=== PATIENT | female | born 1955 | race Caucasian/White ===

== ENCOUNTER → 2023-10-19 12:40 | Outpatient (REF) | payer OTHER, SELFPAY | LOC: PAVMRI 12:40 | PROVIDERS: ATTENDING PHYSICIAN Orthopaedic Surgery; FAMILY PHYSICIAN Physician Assistant Medical | DX: M75.121 Complete rotator cuff tear or rupture of right shoulder, not specified as traumatic (principal); M19.011 Primary osteoarthritis, right shoulder | CPT/HCPCS: 73221 ==

== ENCOUNTER → 2023-11-07 13:30 | Outpatient (REF) | payer OTHER, SELFPAY | LOC: RAD 13:30 | PROVIDERS: ATTENDING PHYSICIAN Podiatrist | DX: M20.42 Other hammer toe(s) (acquired), left foot (principal) | CPT/HCPCS: 73630 ==

== ENCOUNTER → 2024-01-23 13:08 | Outpatient (REF) | payer OTHER, SELFPAY | LOC: PAVMRI 13:08 | PROVIDERS: ATTENDING PHYSICIAN Podiatrist; FAMILY PHYSICIAN Physician Assistant Medical | DX: M79.672 Pain in left foot (principal) | CPT/HCPCS: 73718 ==

== ENCOUNTER 2024-02-11 09:58 | Outpatient (RCR) | payer OTHER, SELFPAY | END 2024-02-11 23:59 | disposition home or self-care (01) | LOC: RPT 09:58 | PROVIDERS: FAMILY PHYSICIAN Pediatrics | DX: M75.41 Impingement syndrome of right shoulder (principal); Z73.6 Limitation of activities due to disability; M25.511 Pain in right shoulder | CPT/HCPCS: 97110; 97140; 97162 ==

== ENCOUNTER → 2024-02-15 12:32 | Outpatient (REF) | payer OTHER, SELFPAY | LOC: HWCARD 12:32 | PROVIDERS: ATTENDING PHYSICIAN Student in an Organized Health Care Education/Training Program; FAMILY PHYSICIAN Physician Assistant Medical | DX: Z01.818 Encounter for other preprocedural examination (principal) | CPT/HCPCS: 93005 ==

== ENCOUNTER 2024-04-10 22:54 | Inpatient (IN) | payer OTHER, MEDICARE, SELFPAY ==
[2024-04-10 17:52] VITALS: BP 183/103
[2024-04-10 19:00] VITALS: BP 140/97
[2024-04-10 19:07] VITALS: BP 150/90
[2024-04-10 19:29] VITALS: BMI 23.2
[2024-04-10 19:31] LABS: % Basophils 0.7 % (0-2); % Eosinophils 1.6 % (0-6); % Immature Granulocytes 0.3 % (0-0.5); % Lymphocytes 28.5 % (20.5-51.1); % Monocytes 12.2 % (1.7-9.3); % Neutrophils 56.7 % (42.2-75.2); Absolute Basophils 0.1 10^3/uL (0-0.2); Absolute Eosinophils 0.1 10^3/uL (0-0.7); Absolute Monocytes 0.9 10^3/uL (0.1-0.6); Hematocrit 36.4 % (37.0-47.0); Mean Corp Hgb Conc. 35.7 g/dL (33.0-37.0); Mean Corpuscular Hgb 33.7 pg (27.0-31.0); Mean Corpuscular Volume 94.3 fL (81.0-99.0); Mean Platelet Volume 8.7 fL (7.4-10.4); Nucleated Red Blood Cells % 0 %; Platelet Count 221 10^3/uL (130-400); Red Blood Cell Count 3.86 10^6/uL (4.20-5.40); Red Cell Dist. Width 12.2 % (11.5-14.5)
[2024-04-10 19:47] LABS: ALT (SGPT) 32 U/L (0-35); AST (SGOT) 31 U/L (14-36); Albumin 4.3 g/dl (3.5-5.0); Alkaline Phosphatase 79 U/L (38-126); Blood Urea Nitrogen 26 mg/dl (7-17); Calcium 10.1 mg/dl (8.4-10.2); Carbon Dioxide 26 mmol/L (22-30); Chloride 105 mmol/L (98-107); Estimated Creatinine Clearance 66 ml/min; Glucose 94 mg/dl (70-99); Potassium 4.2 mmol/L (3.5-5.1); Sodium 140 mmol/L (135-145); Total Bilirubin 0.8 mg/dl (0.2-1.3); Total Protein 6.5 g/dl (6.3-8.2); eGFR > 60.00
--- NOTE | 2024-04-10 19:59 | ED.GENMED ---
History of Present Illness
General
Chief Complaint: DVT/Possible Blood Clot
Time Seen by Provider: 04/10/24 18:46
History of Present Illness
History of Present Illness:
68-year-old female presents the emergency department for evaluation of abrupt onset of left middle finger discoloration and numbness, began mildly last night before worsening today. She denies any trauma to the finger and denies any significant
pain but states that it feels 'full'. She has approximately 1 month status post left bunionectomy and has been complaining of intermittent numbness to the left leg but denies swelling or calf cramping. She has been on full dose aspirin since the
surgery prophylactically and was due to stop in 2 days. She is not a smoker. No chest pain or shortness of breath
Past History
Past History
ED Past Medical History: None
Social History
Tobacco: Non-smoker
Review of Systems
Review of Systems
Allergies reviewed?: Yes
All Other Systems: ROS reviewed and negative except as documented in HPI and ROS
Phy Exam
Physical Exam
Physical Exam:
GEN: Well appearing, NAD, WDWN
HEENT: Oral mucosa moist, no scleral icterus
Cardiac: Regular rate and rhythm no murmur
Lung: No respiratory distress, no tachypnea
MSK: Circumferential violaceous discoloration to the left middle finger with mild digital edema, sensation is diminished however able to feel pinprick, range of motion of the digit is normal. Patient has strong radial pulse on the left side and
ulnar pulse is strong by Doppler
Skin: Good color, no pallor or jaundice, no rashes
Neuro: AO x3, moves all extremities freely
Psych: Calm, cooperative
Course
Orders/Labs/Results
Orders:
Orders
04/10/24 19:18
Complete Blood Count/With Diff Urgent
Comprehensive Metabolic Panel Urgent
PTT Urgent
Comment: ADD ON
Prothrombin Time Urgent
04/10/24 19:42
Electrocardiogram (*1) Urgent
Reason for Study: TIA/Stroke
EKG- Treatment ONCE
04/10/24 19:52
CT Angio Upper Ext W/Wo Iv Contrast [CT Upper Ext Angio W/wo Iv Con] Urgent
Comment:
Reason For Exam: L digital ischemia
04/10/24 21:[address] Non Medication Order As Directed
Physician Order: PTT 6 hours after initial start of Heparin infusion
04/10/24 22:00
Heparin 05757 Units/250 ml 25,000 units in 250 ml IV PER PROTOCOL
Weight to be used for heparin protocol in kilograms (kg):: 67
Protocol:: Vascular Surgery
PTT Goal Range to be used:: PTT 73 to 111 seconds
Order type:: Initial
INITIAL Infusion Dose (UNITS/KG/hr) & then follow protocol:: 18 units/kg/hr
Infusion Dose in UNITS/hr & then follow protocol (UNITS/hr):: 1,200
INFUSION RATE in mL/hr & then follow protocol (mL/hr):: 12
PTT less than or equal to 64 seconds:: Notify Ordering Provider. obtain orders for rate increase &
possible bolus
PTT 64.1 to 72.9 seconds:: Increase rate by 100 units/hr (+ 1 mL/hr)
PTT 73 to 111 seconds:: Target Range. No change in rate.
PTT 111.1 to 130.9 seconds:: Decrease rate by 100 units/hr (- 1 mL/hr)
PTT 131 to 199.9 seconds:: HOLD for 1 hour. Then decrease rate by 200 units/hr (- 2 mL/hr)
PTT greater than or equal to 200 seconds:: STOP INFUSION. Notify Ordering provider to obtain further orders.
Lab follow-up:: Each change, PTT q6h until 2 consecutive are therapeutic. Then PTT
daily.
04/10/24 22:12
Add On- LAB Urgent
Tests Added?: PTT
04/10/24 22:33
Heparin 5,400 units IV NOW STA
04/10/24 22:34
Heparin 2,700 units IV PRN PRN
Heparin 5,400 units IV PRN PRN
04/10/24 22:44
Admit/Transfer Patient As Directed
Co-Sign Provider:
Level of Care: Inpatient admission
Assign to:: Medical/Surgical
Physician / Group: edwina
Diagnosis: ischemic left third finger
Reason for Hospitalization: ischemic left third finger
Expected length of stay greater than two midnights?: Yes
ELOS- Estimated Length of Stay in days: 2
I certify the patient meets the requirements for IP care: Yes
Code Status As Directed
Resuscitation Status: Full Code
PRN Pain Medication Management As Directed
May give lesser potent ordered pain med per pt: Yes
preference::
Protocol:: Medication orders for pain may be administered in a
manner that supports deferring to patient preference
when the pt is:
- Requesting an ordered lesser potent pain medication.
Least to most potent pain medications are defined
as: acetaminophen < NSAID < tramadol < opioids
(morphine, oxycodone, hydromorphone).
- Requesting a lesser dose of the same medication IF
ORDERED.
- Requesting a less intrusive route of administration
if both routes are prescribed by the provider (PO <
IV).
Abnormal Lab Results
04/10/24
19:18
RBC 3.86 L 10^6/uL
(4.20-5.40)
Hct 36.4 L %
(37.0-47.0)
MCH 33.7 H pg
(27.0-31.0)
Absolute Monos (auto) 0.9 H 10^3/uL
(0.1-0.6)
Monocytes % 12.2 H %
(1.7-9.3)
BUN 26 H mg/dl
(7-17)
04/10/24 19:18
04/10/24 19:18
Vital Signs
Initial and Last Documented VS:
Initial Vital Signs
Temp Pulse Resp BP Pulse Ox
98.4 F 82 18 183/103 95
04/10/24 17:52 04/10/24 17:52 04/10/24 17:52 04/10/24 17:52 04/10/24 17:52
Last Documented Vital Signs
Temp Pulse Resp BP Pulse Ox
98.4 F 67 20 142/89 96
04/10/24 17:52 04/10/24 21:45 04/10/24 21:45 04/10/24 21:17 04/10/24 21:45
MDM/Problems Addressed
MDM/Problems Addressed:
Case was discussed with vascular surgery, recommend cardioembolic and vascular anatomic workup with CT angiogram. No evidence of arrhythmia on EKG, CT angiogram grossly unremarkable. Will admit on heparin as this occurred while the patient was on
full dose aspirin although aspirin was felt to be sufficient by vascular surgery. Will need further cardioembolic workup with echocardiogram
*Critical Care Note
Total Time (30-74mins, 75-104mins- exclusive of procedures): Not Applicable
ED Attending Note
-
Portions of this chart may have been created with voice recognition software.� Occasional wrong word or��sound alike� substitutions may have occurred due to the inherent limitations of voice recognition software.
Discharge Plan
Departure
Patient Disposition: Admit
Date of Disposition: 04/10/24
Time of Disposition: 22:04
Admit to: Telemetry
Presentation/result/management discussed w/ accepting MD/DO: Hospitalist
Discharge Problem:
Ischemia of digits of hand
Interventions
Interventions:
*Risk Screen - Suicide Last Done: 04/10/24 17:52
*General Assessment Last Done: 04/10/24 17:52
*Neglect/Abuse Screening Last Done: 04/10/24 17:52
ED- Fall Risk Assessment Last Done: 04/10/24 19:38
*ED COVID-19 Vaccine History Last Done: 04/10/24 17:52
ED- Cardiac Assessment Last Done: 04/10/24 19:29
ED- Pulmonary Assessment Last Done: 04/10/24 19:29
ED-Peripheral Vascular Assessment Last Done: 04/10/24 19:29
ED-Skin Assessment Last Done: 04/10/24 19:29
[2024-04-10 20:00] VITALS: BP 172/85
[2024-04-10 20:05] LABS: INR 1.06; PT 14.3 Sec (11.4-14.6)
[2024-04-10 21:17] VITALS: BP 142/89
--- NOTE | 2024-04-10 22:47 | HPS.HSE ---
Family Physician
-
Family Physician: Loly Rodriguez
Chief Complaint
-
left third finger discoloration
History of Present Illness
68-year-old female past medical history of hypertension, throat schwannoma status post resection, vocal cord reconstruction, left foot bunion surgery, presenting with abrupt onset of left middle finger discoloration and numbness and tingling which
started last night and got worse today. Patient denies any trauma to the finger. She states the left finger felt cool earlier today.
Patient underwent bunionectomy of left foot a month ago and during the surgery received a left lower extremity nerve block and has been complaining of persistent burning pain at the site of the nerve block inferior and posterior to the left knee.
She is unable to sleep due to the pain.
Patient denies smoking. She drinks alcohol occasionally.
Medical History
Past Medical History
Past Medical History: Reports Other (hypertension, throat schwannoma status post resection, vocal cord reconstruction, left foot bunion surgery,)
Past Surgical History: Reports and Other (schwannoma throat surgery, left foot bunion surgery )
Social History
Tobacco: Non-smoker
Alcohol: Occasional
Drug: None
Family History
Family History: Not pertinent
Allergies / Home Medications
Allergies reflects when Allergies were last updated in [facility].
Home Medications with original date entered in [facility]
Allergy/Medication List:
Allergies
Allergy/AdvReac Type Severity Reaction Status Date / Time
tramadol Allergy Unknown Verified 04/10/24 17:53
Home Medications
acetaminophen 500 mg tablet 500 - 1,000 mg PO Q6HPRN PRN mild pain 04/10/24
aspirin 325 mg tablet 325 mg PO DAILY 04/10/24
gabapentin 300 mg capsule 300 mg PO HS 04/10/24
ibuprofen 600 mg tablet 600 mg PO Q6HPRN PRN mild pain 04/10/24
lisinopril 5 mg tablet 5 mg PO DAILY 04/10/24
naproxen sodium 220 mg tablet (Aleve) 440 mg PO BIDPRN PRN mild pain 04/10/24
Review of Systems
-
History Source: Patient
A 12 point ROS was completed and negative except as noted: Yes
Constitutional: Reports No Symptoms
EENT: Reports No Symptoms
Respiratory: Reports No Symptoms
Cardiac: Reports No Symptoms
Abdomen/GI: Reports No Symptoms
: Reports No Symptoms
Musculoskeletal: Reports No Symptoms
Skin: Reports No Symptoms
Neurological: Reports No Symptoms
Endocrine: Reports No Symptoms
Hematologic/Lymphatic: Reports No Symptoms
Psych: Reports No Symptoms
Physical Exam
Vital Signs
Vital Signs
Temp Pulse Resp BP Pulse Ox
98.4 F 67 20 142/89 96
04/10/24 17:52 04/10/24 21:45 04/10/24 21:45 04/10/24 21:17 04/10/24 21:45
Physical Exam
General: Well Developed, Well Nourished and No Apparent Distress
HEENT: NormoCephalic, Moist mucous membranes and Atraumatic
Respiratory: Clear
Cardiac: S1/S2 and Regular Rhythm; No Murmur or Rub
GI: Soft, Non Tender, Non Distended and Normal Bowel Sounds; No Organomegaly
Rectal: Deferred by Provider
Musculoskeletal: No Clubbing, No Cyanosis and No Edema
Skin: Other (left third finger discoloration ); No Rash
Neuro: Nonfocal/grossly intact
Laboratory Results
-
04/10/24 19:18
04/10/24 19:18
Laboratory Results
PT 14.3 Sec (11.4-14.6) 04/10/24 19:18
INR 1.06 04/10/24 19:18
APTT Cancelled 04/10/24 21:57
Total Bilirubin 0.8 mg/dl (0.2-1.3) 04/10/24 19:18
AST 31 U/L (14-36) 04/10/24 19:18
ALT 32 U/L (0-35) 04/10/24 19:18
Alkaline Phosphatase 79 U/L (38-126) 04/10/24 19:18
Data Reviewed
-
Lab Data: Labs Reviewed by me
Old Records: Reviewed
Impression/Plan
-
IMPRESSION:
PLAN:
# Ischemic left third finger, possibly cardioembolic
-CT angiogram of left upper extremity unremarkable apart from mild calcific atherosclerosis in the proximal left subclavian artery,
-Continue aspirin
-Heparin drip started
-Vascular surgery consulted
-Check echocardiogram
# Left foot bunion status post surgery 1 month ago
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
-Increase gabapentin from 300 mg at night to 600 mg
-Continue aspirin, Tylenol, naproxen
Essential hypertension
-Continue lisinopril
History of throat schwannoma status post resection
History of vocal cord reconstruction
Full code
DVT prophylaxis�heparin drip
Regular diet
[2024-04-10] MEDS: HEPARIN 5400 UNITS IV (22:57)
[2024-04-10] MEDS: HEPARIN 25000 UNITS/250 ML IV (23:00)
[2024-04-11] VITALS (7 sets, daily range): BP systolic 85–159; BP diastolic 72–101; PULSE 71–109; O2SAT 96; BMI 22.1
[2024-04-11] MEDS: NEURONTIN 600 MG PO ×2 (01:09→21:04)
[2024-04-11] MEDS: TYLENOL 1000 MG PO (01:11)
[2024-04-11] MEDS: BENADRYL 25 MG PO ×2 (01:31→22:54)
[2024-04-11 06:08] LABS: % Basophils 1.1 % (0-2); % Eosinophils 2.3 % (0-6); % Immature Granulocytes 0.2 % (0-0.5); % Lymphocytes 35.9 % (20.5-51.1); % Monocytes 14.6 % (1.7-9.3); % Neutrophils 45.9 % (42.2-75.2); Absolute Basophils 0.1 10^3/uL (0-0.2); Absolute Eosinophils 0.1 10^3/uL (0-0.7); Absolute Monocytes 0.8 10^3/uL (0.1-0.6); Absolute Neutrophils 2.5 10^3/uL (1.4-6.5); Hemoglobin 12.7 g/dL (12.0-16.0); Mean Corp Hgb Conc. 35.3 g/dL (33.0-37.0); Mean Corpuscular Hgb 33.2 pg (27.0-31.0); Mean Platelet Volume 8.8 fL (7.4-10.4); Nucleated Red Blood Cells % 0 %; Platelet Count 217 10^3/uL (130-400); Red Blood Cell Count 3.83 10^6/uL (4.20-5.40); Red Cell Dist. Width 12.4 % (11.5-14.5); White Blood Cell Count 5.5 10^3/uL (4.8-10.8)
--- NOTE | 2024-04-11 06:28 | PTCARENOTE ---
pt is aaox3, reports left foot pain -. pt had surgery 1 month ago. dressing was done by out pt by surgeon. Assessed wound- 2 pins noted, gauze and efrain wrap maintained. edema noted. pt has weak pulse. pt has left 3rd finger- red/purple, edema. no
open areas. weak radial pulse. pt is on heparin gtt at 1200units/hr. pt is oriented to room w. call castro in reach.
[2024-04-11 06:51] LABS: APTT 186.3 Sec (23.4-35.0)
[2024-04-11 08:21] LABS: ALT (SGPT) 30 U/L (0-35); AST (SGOT) 30 U/L (14-36); Albumin 3.9 g/dl (3.5-5.0); Alkaline Phosphatase 80 U/L (38-126); Blood Urea Nitrogen 20 mg/dl (7-17); Calcium 9.7 mg/dl (8.4-10.2); Carbon Dioxide 23 mmol/L (22-30); Chloride 108 mmol/L (98-107); Estimated Creatinine Clearance 66 ml/min; Glucose 89 mg/dl (70-99); Potassium 4.1 mmol/L (3.5-5.1); Sodium 141 mmol/L (135-145); Total Bilirubin 1.1 mg/dl (0.2-1.3); eGFR > 60.00
[2024-04-11] MEDS: ASPIRIN 325 MG PO (08:52)
[2024-04-11] MEDS: ZESTRIL 5 MG PO (08:52)
--- NOTE | 2024-04-11 08:52 | W.PN.HOSP.TC ---
Today's Communication/Plan
-
see A/P
Assessment / Plan
Assessment / Plan
HPI: 68-year-old female past medical history of hypertension, throat schwannoma status post resection, vocal cord reconstruction, left foot bunion surgery, presented with abrupt onset of left middle finger discoloration and numbness and tingling
which started 24 to 48 hours [employer]. Patient denies any trauma to the finger. She states the left finger was cooled but got better.
Patient underwent bunionectomy of left foot a month ago and during the surgery received a left lower extremity nerve block and has been complaining of persistent burning pain at the site of the nerve block inferior and posterior to the left knee.
She is unable to sleep due to the pain.
Patient denies smoking. She drinks alcohol occasionally.
A/P:
# Ischemic left third finger, possibly cardioembolic
CT angiogram of left upper extremity unremarkable apart from mild calcific atherosclerosis in the proximal left subclavian artery,
Continue aspirin
Heparin drip started
Vascular surgery consulted
Check echocardiogram
# Left foot bunion status post surgery 1 month ago
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
Increased gabapentin from 300 mg at night to 600 mg HS
Continue aspirin, Tylenol, naproxen
# Essential hypertension
Continue lisinopril
# History of throat schwannoma status post resection
# History of vocal cord reconstruction
Full code
DVT prophylaxis�heparin drip
Regular diet
Anticipated Discharge: 24 - 48 hours
Subjective/Interval History
-
Date of Service: April 11, 2024
Objective Data
-
Labs:
Laboratory Results
04/10/24 04/10/24 04/11/24
19:18 21:57 05:49
WBC 5.5
Hgb 12.7
Hct 36.0 L
Plt Count 217
APTT 30.0 Cancelled 186.3 H*
Sodium 141
Potassium 4.1
Chloride 108 H
Carbon Dioxide 23
BUN 20 H
Creatinine 0.8
Glucose 89
Calcium 9.7
Total Bilirubin 1.1
AST 30
ALT 30
Alkaline Phosphatase 80
04/11/24
13:00
WBC
Hgb
Hct
Plt Count
APTT Pending
Sodium
Potassium
Chloride
Carbon Dioxide
BUN
Creatinine
Glucose
Calcium
Total Bilirubin
AST
ALT
Alkaline Phosphatase
Vital Signs:
Vital Signs
Temp Pulse Resp BP Pulse Ox
36.4 C 71 18 159/100 97
04/11/24 08:37 04/11/24 08:37 04/11/24 08:37 04/11/24 08:37 04/11/24 08:37
I&O
04/10/24 04/11/24 04/12/24
06:59 06:59 06:59
Intake Total 480 / 480
Balance 480 / 480
--- NOTE | 2024-04-11 08:59 | WOUNDNOTE ---
L GREAT TOE (SIDE OF)/TOES
--- NOTE | 2024-04-11 09:02 | WOUNDNOTE ---
[facility] RN note: Patient admitted with ischemic L 3rd finger.
See H&P for complete history.
PMH: HTN, throat schwannoma s/p resection, vocal cord reconstruction, L bunion surgery [address] Ko saw patient on Sunday and redressed her L foot. Burning at nerve block L leg in certain areas.
Wound Location and type/assessment: Patient admitted with: L medial dorsal 1st MTH incision, dry scabbed with steri strips intact, L 2,3,4 incisions covered with steri strips, pins in distal 3,4th toes. Bruising L great and 2nd lateral toes. No
drainage from foot. No erythema around incisions. No edema noted. +Palpable pedal pulses. L middle dorsal finger dull dark purple bruise appearance. L middle finger warm. +L palpable radial pulse. Patient stated it was cool when she came in.
Vascular on consult.
Appetite: good.
Pressure redistribution devices in place: [employer] Accumax. Patient mobile. She is L heel weight bearing only in her flat surgical shoe.
Plan: L foot dry gauze dressing, macario and juan wrap changed for skin assessment. Lowber texted Dr. Ko pictures of L foot to confirm any dressing change needed besides changing Juan wrap daily.
Will confirm orders with Dr. Johnson and discussed with JENNYFER Guerrero.
Care plan to be updated and will follow as needed. Patient to follow up with Dr. Ko on 04/22/24. Will sign off. Call if needed.
--- NOTE | 2024-04-11 09:03 | WOUNDNOTE ---
L FOOT (DORSAL LATERAL)
--- NOTE | 2024-04-11 10:00 | WOUNDNOTE ---
[facility] RN note: Dr. Ko responded to [place] text stating no wound care except change Yamilka and efrain wrap daily. Care plan to be updated. Will sign off.
--- NOTE | 2024-04-11 12:13 | CON.VAS ---
Addendum entered and electronically signed by Willie Cat III, MD 04/11/24 15:46:
This patient was seen and examined with KERI Kevin. I agree with the history and physical exam as well as the assessment and plan. I have the following additions:
Spontaneous onset of painless left middle finger discoloration over the dorsal surface
Insidious onset
No trauma
Recently had foot surgery and has been taking ibuprofen and aspirin in combination
No palpitations
No history of arrhythmia
No open wounds or ulcerations
On physical exam the left middle finger appears ecchymotic on the dorsal surface
Left middle finger is edematous
No open wounds or ulcerations present
Completely nontender to touch
Hand is warm
Fingertips are pink with cap refill intact and brisk throughout
Palpable brachial and radial pulses on the left
Imaging reviewed. No obvious proximal embolic source or stenosis
High brachial bifurcation identified on CTA as an incidental finding
Vascular lab imaging reviewed and demonstrates a normal left wrist brachial index. Pulsatile waveforms are identified in the middle finger digit and the finger brachial index measured at this digit is also within normal limits.
The clinical presentation and imaging findings are not consistent with an ischemic etiology. This could perhaps be secondary to spontaneous ecchymosis from ibuprofen and aspirin use in combination.
Call with questions or concerns
Signed:
Willie Cat III, MD
[facility] Surgery
[phone] ([id number])
Original Note:
Consultation
Consultation Request
Performing Provider: Stephania
Reason for Consultation: Discolored left middle finger
Medical History
-
Chief Complaint: Discolored left middle finger
History of Present Illness:
68-year-old female with past medical history hypertension, throat schwannoma status post resection, vocal cord reconstruction, left foot bunion surgery, presented with abrupt onset of left middle finger discoloration. She states that her daughter
noticed it 2 days ago and yesterday her case technician urged her to go to the ER. After speaking with her primary care provider she decided to come to the ER. She denies any trauma to the finger. She denies pain. She admits to a full sensation
which makes it feel tight with movement. She is able to move the finger normally. Hand and finger is of normal temperature. There is slight swelling to the finger. Easily palpable radial pulse. Patient underwent bunionectomy of the left foot
about a month ago and was placed on aspirin, Motrin, Tylenol, and gabapentin at that time which she has recently weaned herself off of 'most' of them (patient is unsure which ones she is still taking).
CT left upper extremity: Mild calcific atherosclerotic plaque in the proximal left subclavian artery. No CTA evidence for large vessel arterial occlusion, stenosis, or thrombosis in the left upper extremity.
Vascular consult for discolored left middle finger. Patient stated bedside this a.m. with Dr. Cat. Patient with no real complaints. Denies pain. Denies decreased sensation or mobility.
Past Medical History
Past Medical History: Other (hypertension, throat schwannoma status post resection, vocal cord reconstruction, left foot bunion surgery)
Past Surgical History: and Other (schwannoma throat surgery, left foot bunion surgery)
Social History
Tobacco: Non-Smoker
Alcohol: Occasional
Drug: None
Family History
Family History: Reviewed & Not Pertinent
Allergies / Home Medications
Allergy/AdvReac Type Severity Reaction Status Date / Time
tramadol Allergy Unknown Verified 04/10/24 17:53
�Medication �Instructions �Recorded �Confirmed �Type
acetaminophen 500 mg tablet 500 - 1,000 mg PO Q6HPRN PRN mild 04/10/24 04/10/24 History
pain
aspirin 325 mg tablet 325 mg PO DAILY 04/10/24 04/10/24 History
gabapentin 300 mg capsule 300 mg PO HS 04/10/24 04/10/24 History
ibuprofen 600 mg tablet 600 mg PO Q6HPRN PRN mild pain 04/10/24 04/10/24 History
lisinopril 5 mg tablet 5 mg PO DAILY 04/10/24 04/10/24 History
naproxen sodium 220 mg tablet 440 mg PO BIDPRN PRN mild pain 04/10/24 04/10/24 History
(Jayme)
Review of Systems
-
History Source: Patient
All other systems: Negative unless noted
Constitutional: Reports No Symptoms
EENT: Reports No Symptoms
Respiratory: Reports No Symptoms
Cardiac: Reports No Symptoms
Vascular: Denies Leg Pain / Claudication
Abdomen/GI: Reports No Symptoms
: Reports No Symptoms
Musculoskeletal: Reports No Symptoms
Skin: Reports Other (Slight discoloration of left middle finger)
Neurological: Reports No Symptoms
Endocrine: Reports No Symptoms
Physical Exam
Vital Signs
Temp Pulse Resp BP Pulse Ox
97.6 F 71 18 159/100 97
04/11/24 08:37 04/11/24 08:37 04/11/24 08:37 04/11/24 08:37 04/11/24 08:37
Lab Results
04/11/24 05:49
04/11/24 05:49
Physical Exam
General: No Apparent Distress
HEENT: Normocephalic and Atraumatic
Respiratory: Non Labored Respirations
Cardiac: Negative JVD
GI: Soft and Non Tender
Musculoskeletal: No Clubbing, No Cyanosis and Edema (Left middle finger with slight swelling)
Skin: Warm and Other (Palpable bilateral radial pulses, fingers warm to the touch, nontender)
Neuro: Awake, Alert and Oriented
Psych: Calm
Assessment / Plan
-
68-year-old female with new onset left middle finger discoloration and slight swelling, no pain associated
Plan:
-Left upper extremity ultrasound with segmental pressures
-Low suspicion for ischemia
-Initiate embolic workup
Data Reviewed
-
CT Scan: Discussed with Patient
Labs: Labs Reviewed by me
[2024-04-11 14:29] LABS: APTT 80.8 Sec (23.4-35.0)
--- NOTE | 2024-04-11 15:11 | CM ---
manager care reviewed patient's chart and met with patient and patient states she lives alone in a 2 story home, patient is independent with adl's and ambulation, patient reports she recently had surgery.
PCP: Loly Rodriguez
Plan; Home no needs.
[2024-04-11 20:38] LABS: APTT 58.9 Sec (23.4-35.0)
[2024-04-11] MEDS: HEPARIN 5400 UNITS IV (21:16)
[2024-04-11] MEDS: HEPARIN 25000 UNITS/250 ML IV (22:45)
--- NOTE | 2024-04-11 23:19 | PTCARENOTE ---
Pt PPT result from 1929 draw was 58.9. Provider Patricia notified per heparin protocol. PRN order or 5400 units administered and continuous Heparin maintained at 1000units/hr per [employer] LE[employer] orders. No s/s of bleeding noted at this time, pt educated to use
call castro if she notices any bleeding.
[2024-04-12 04:13] LABS: APTT 163.9 Sec (23.4-35.0)
[2024-04-12 07:15] VITALS: BP 113/82; BP 121/84; BP 129/89; PULSE 68; PULSE 83; PULSE 84
--- NOTE | 2024-04-12 08:57 | W.PN.HOSP.TC ---
Addendum entered and electronically signed by Leatha Johnson MD 04/12/24 14:10:
total DC time 36 min
Original Note:
Today's Communication/Plan
-
DC home today
Assessment / Plan
Assessment / Plan
HPI: 68-year-old female past medical history of hypertension, throat schwannoma status post resection, vocal cord reconstruction, left foot bunion surgery, presented with abrupt onset of left middle finger discoloration and numbness and tingling
which started 24 to 48 hours [employer]. Patient denies any trauma to the finger. She states the left finger was cooled but got better.
Patient underwent bunionectomy of left foot a month ago and during the surgery received a left lower extremity nerve block and has been complaining of persistent burning pain at the site of the nerve block inferior and posterior to the left knee.
She is unable to sleep due to the pain.
Patient denies smoking. She drinks alcohol occasionally.
A/P:
# left third finger discoloration, unclear cause
Palpable brachial and radial pulses on the left, Hand is warm, discoloration has improved
Vascular felt this could be spontaneous ecchymosis from ibuprofen and aspirin use in combination.
Of note, her CT angiogram of left upper extremity unremarkable apart from mild calcific atherosclerosis in the proximal left subclavian artery,
Echo unrevealing: EF 55-60%. Normal diastolic function. Normal right ventricular size and function
Stop further heparin drip
Continue aspirin but recc to hold further NSAID
Appreciate Vascular surgery input
# Left foot bunion status post surgery 1 month ago
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
Increased gabapentin from 300 mg at night to 600 mg HS, pt agreeable to continue such increased dose
Continue aspirin, Tylenol
Hold further naproxen
# Essential hypertension
Continue lisinopril
# History of throat schwannoma status post resection
# History of vocal cord reconstruction
Full code
DVT prophylaxis� DC further heparin drip
Regular diet
Anticipated Discharge: Today
Subjective/Interval History
-
Date of Service: April 12, 2024
Objective Data
-
Labs:
Laboratory Results
04/12/24 04/12/24 04/12/24
03:43 06:00 11:20
WBC Pending
Hgb Pending
Hct Pending
Plt Count Pending
APTT 163.9 H* Pending
Sodium Pending
Potassium Pending
Chloride Pending
Carbon Dioxide Pending
BUN Pending
Creatinine Pending
Glucose Pending
Calcium Pending
Vital Signs:
Vital Signs
Temp Pulse Resp BP Pulse Ox
36.6 C 68 18 113/82 97
04/12/24 07:15 04/12/24 07:15 04/12/24 07:15 04/12/24 07:15 04/12/24 07:15
I&O
04/11/24 04/12/24 04/13/24
06:59 06:59 06:59
Intake Total 480 / 480 360 / 360
Balance 480 / 480 360 / 360
Review of Systems
-
All other systems: Reviewed and negative
Physical Exam
-
General: Well Developed, Well Nourished, No Apparent Distress, Comfortable and Conversant; Negative Respiratory Distress
HEENT: Normocephalic, Atraumatic, Nose Appears Normal and Ears Appear Normal; Negative Oxygen
Respiratory: Clear to Auscultation and Non Labored Respirations; Negative Accessory Resp Muscle Use
Cardiac: Regular Rhythm and S1/S2
GI: Soft, Nontender, Nondistended and Normal Bowel Sounds
Skin: Warm, Dry and Other (Left third finger discoloration has improved )
Neuro: Awake, Alert, Oriented and AO x 3
Psych: Calm and Intact Judgement/Insight
Data Reviewed
-
CT Scan: Report Reviewed by me
Labs: Labs Reviewed by me
[2024-04-12] MEDS: ZESTRIL 5 MG PO (09:39)
[2024-04-12] MEDS: ASPIRIN 325 MG PO (09:39)
--- NOTE | 2024-04-12 09:54 | CM ---
Addendum entered by Shannen Hannah 04/12/24 09:55:
Patient informs case resolution specialist that she has medicare Part A, copy of card faxed to admissions at [phone]
Original Note:
{Patient is for discharge to home today no needs
Plan; Home no needs.
--- NOTE | 2024-04-12 13:53 | W.DCSUMMARY ---
Discharge Summary
Discharge Data
Date of Admission: 04/10/24
Date of Discharge: 04/12/24
-
Pending Results: No
Hospital Course
Principal Diagnosis:
Left third finger discoloration, unclear cause, probable spontaneous ecchymosis from ibuprofen and aspirin use in combination.
Chronic Diagnoses:�
Recent Left foot bunion surgery 1 month ago prior to admission
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
Essential hypertension
History of throat schwannoma status post resection
History of vocal cord reconstruction
Consultations:�
Vascular surgery
Procedures:�
None
Clinical course:�
This is a 68-year-old female with past medical history as stated above, who presented with left middle finger discoloration and numbness/tingling that started about 48 hours [employer]PL[employer]. She denied to any trauma to the finger.
Problem 1:
Left third finger discoloration, unclear cause, probable spontaneous ecchymosis from ibuprofen and aspirin use in combination.
She has good palpable brachial and radial pulses on the left, her hand was warm, discoloration improved during hospital stay.
Her CT angio of the left upper extremity was unremarkable, noted mild calcific atherosclerosis in the proximal left subclavian artery.
Her echo was unrevealing (was checked for any cardioembolic source), noted: EF 55-60%. Normal diastolic function. Normal right ventricular size and function.
She did receive heparin drip initially which was subsequently discontinued.
She has been informed to continue aspirin alone, and hold further NSAID.
As for the rest of her medical problems, they were stable during her hospital stay.
Discharge Plan
-
Patient Disposition: Home (Routine Discharge)
Discharge Diagnosis/Procedures: left third finger discoloration, unclear cause, but felt likely related to ibuprofen and aspirin use in combination.
Condition: Good
Diet: As tolerated, Low Fat, Low Cholesterol and Low Sodium
Activity: As tolerated
Driving Restrictions: As prior to admission
Activity Restrictions/Additional Instructions:
L foot-change Yamilka wrap daily and rewrap Juan daily.
L heel weight bear only in surgical shoe.
Follow up with your podiatric surgeon.
Referrals:
Loly Rodriguez PA [Family Provider] - in less than 1 week
Additional Discharge Medication Instructions: Hold further Ibuprofen/Naproxen
Your gabapentin dose has been increased from 300 to 600 mg at night to better control your nerve pain.
Prescriptions:
New
gabapentin 300 mg Capsule
600 mg PO HS Qty: 60 0RF
Continued
aspirin 325 mg tablet
325 mg PO DAILY
acetaminophen 500 mg tablet
500 - 1,000 mg PO Q6HPRN PRN (Reason: mild pain)
lisinopril 5 mg tablet
5 mg PO DAILY
Discontinued
naproxen sodium [Aleve] 220 mg Tablet
440 mg PO BIDPRN PRN (Reason: mild pain)
gabapentin 300 mg capsule
300 mg PO HS
ibuprofen 600 mg tablet
600 mg PO Q6HPRN PRN (Reason: mild pain)
Discharge Orders:
Discharge Patient (As Directed); Ordered 04/12/24
Ordered By: Leatha Johnson
Discharge Date and Time
Discharge Date/Time: 04/12/24 10:21
Print Language: ICELANDIC
== END 2024-04-12 10:21 | disposition home or self-care (01) | DRG 558 ==
LOC: 4 WEST ACU 22:54
PROVIDERS: Physician Assistant; ADMITTING PHYSICIAN Hospitalist; ATTENDING PHYSICIAN Internal Medicine; EMERGENCY PHYSICIAN Student in an Organized Health Care Education/Training Program; FAMILY PHYSICIAN Physician Assistant Medical; OTHER PHYSICIAN Surgery Vascular Surgery
DX: M62.242 Nontraumatic ischemic infarction of muscle, left hand (principal); I10 Essential (primary) hypertension
CPT/HCPCS: 73206; 80053; 85025; 85610; 85730; 87070; 93005; 93306; 93923; 93930; 97162; 97166; 99285; Q9967

== ENCOUNTER 2024-05-27 11:03 | Outpatient (RCR) | payer OTHER, SELFPAY | END 2024-05-27 23:59 | disposition home or self-care (01) | LOC: RPT 11:03 | PROVIDERS: ATTENDING PHYSICIAN Student in an Organized Health Care Education/Training Program; FAMILY PHYSICIAN Physician Assistant Medical | DX: M79.605 Pain in left leg (principal); R26.81 Unsteadiness on feet | CPT/HCPCS: 97010; 97110; 97140; 97162; 97530 ==

== ENCOUNTER → 2024-06-03 14:36 | Outpatient (REF) | payer OTHER, SELFPAY | LOC: PAVMRI 14:36 | PROVIDERS: ATTENDING PHYSICIAN Orthopaedic Surgery; FAMILY PHYSICIAN Physician Assistant Medical | DX: M19.012 Primary osteoarthritis, left shoulder (principal) | CPT/HCPCS: 73221 ==

== ENCOUNTER 2024-06-19 10:44 | Outpatient (RCR) | payer OTHER, SELFPAY | END 2024-06-19 23:59 | disposition home or self-care (01) | LOC: RPT 10:44 | PROVIDERS: ATTENDING PHYSICIAN Student in an Organized Health Care Education/Training Program; FAMILY PHYSICIAN Physician Assistant Medical | DX: M79.605 Pain in left leg (principal); Z47.89 Encounter for other orthopedic aftercare (principal); Z73.6 Limitation of activities due to disability; R26.81 Unsteadiness on feet; R26.2 Difficulty in walking, not elsewhere classified; M62.81 Muscle weakness (generalized) | CPT/HCPCS: 97010; 97110; 97112 ==

== ENCOUNTER → 2024-06-25 13:05 | Outpatient (REF) | payer OTHER, SELFPAY | LOC: HWWDC 13:05 | PROVIDERS: ATTENDING PHYSICIAN Obstetrics & Gynecology Gynecology; FAMILY PHYSICIAN Physician Assistant Medical | DX: Z12.31 Encounter for screening mammogram for malignant neoplasm of breast (principal) | CPT/HCPCS: 77063; 77067 ==

== ENCOUNTER → 2025-03-03 11:16 | Outpatient (REF) | payer OTHER, SELFPAY | LOC: MRI 3T 11:16 | PROVIDERS: ATTENDING PHYSICIAN Orthopaedic Surgery; FAMILY PHYSICIAN Physician Assistant Medical | DX: M47.817 Spondylosis without myelopathy or radiculopathy, lumbosacral region (principal) | CPT/HCPCS: 72148 ==

== ENCOUNTER → 2025-04-14 13:43 | Outpatient (REF) | payer OTHER, SELFPAY | LOC: RAD 13:43 | PROVIDERS: ATTENDING PHYSICIAN Physician Assistant Medical | DX: M85.89 Other specified disorders of bone density and structure, multiple sites (principal) | CPT/HCPCS: 77080 ==